=== PATIENT | female | born 1950 | race African-American/Black ===

== ENCOUNTER → 2020-12-12 | Outpatient (CLI) | payer MEDICARE, MEDICAID | END | disposition home or self-care (01) | LOC: RAD 11:56 | PROVIDERS: ATTEND Nurse Practitioner Family | DX: I63.81 Other cerebral infarction due to occlusion or stenosis of small artery (principal); G31.9 Degenerative disease of nervous system, unspecified; R41.3 Other amnesia | CPT/HCPCS: 70551 ==

== ENCOUNTER 2021-01-05 14:48 | Emergency (ER) | payer MEDICARE, MEDICAID ==
[~2021-01-05] VITALS: Ht 154.9 cm; Wt 46.3 kg
[2021-01-05] MEDS ORDERED: SODIUM CHLORIDE FLUSH 10ML SYR IVF ONE (15:30)
[2021-01-05] MEDS ORDERED: SODIUM CHLORIDE 0.9% 1,000ML IVBOLUS ONE (15:30)
--- NOTE | 2021-01-05 15:43 | NUR ---
PIV PLACED, LABS DRAWN AND COLLECTED BY COMPLIANCE AUDITOR. URINE COLLECTED VIA STRAIGHT CATH AND TAKEN TO LAB. PT CONNECTED TO MONITORING. DAUGHTER AT BEDSIDE.
[2021-01-05 15:51] LABS: BASOPHILS % (AUTO) 1 % (0-1); EOSINOPHILS % (AUTO) 1 % (1-7); LYMPHOCYTES % (AUTO) 24 % (22-44); MEAN CORPUSCULAR HEMOGLOBIN 27.5 pg (27.0-34.8); MEAN CORPUSCULAR HGB CONC 32.8 g/dL (32.4-35.8); MEAN PLATELET VOLUME 8.1 fL (7.4-10.4); MONOCYTES % (AUTO) 11 % (2-9); NEUTROPHILS % (AUTO) 64 % (42-75); PLATELET COUNT 192 x10^3/uL (130-400); RED CELL DISTRIBUTION WIDTH 14.6 % (9.6-15.2)
[2021-01-05 15:55] LABS: MD NO
[2021-01-05 15:56] LABS: MICROSCOPIC AUTO
[2021-01-05 15:59] LABS: ALBUMIN 3.4 g/dL (3.4-5.0); ANION GAP 5 mmol/L (5-15); CALCIUM 8.5 mg/dL (8.5-10.1); CHLORIDE 103 mmol/L (98-107)
[2021-01-05 16:03] LABS: ALANINE AMINOTRANSFERASE 46 U/L (12-78); ALKALINE PHOSPHATASE 78 U/L (45-117); BILIRUBIN,TOTAL 0.3 mg/dL (0.2-1.0); CREATININE 0.93 mg/dL (0.55-1.02)
[2021-01-05 16:18] VITALS: BP 154/85
--- NOTE | 2021-01-05 16:19 | NUR ---
ALL RESULTS ARE BACK AT THIS TIME. CHART UP FOR RECHECK.
--- NOTE | 2021-01-05 16:45 | NUR ---
ERPA AT BEDSIDE TO UPDATE PT ON POC.
== END 2021-01-05 17:16 | disposition home or self-care (01) ==
LOC: ED 15:49
DX: R73.9 Hyperglycemia, unspecified (principal); R30.0 Dysuria; R10.9 Unspecified abdominal pain
CPT/HCPCS: 36415; 80053; 81001; 82962; 85025; 96360; 99283; J7030